=== PATIENT | male | born 1975 | race Caucasian/White ===

== ENCOUNTER 2025-09-15 19:25 | Emergency (ER) | payer OTHER, SELFPAY ==
[2025-09-15] MEDS ORDERED: Aspirin Chewable 81 MG TAB ONE (19:45)
[2025-09-15 19:49] LABS: Hematocrit 46.5 % (42.0-52.0); Hemoglobin 16.6 g/dL (14.0-18.0); MDiff Complete? YES; Mean Corpuscular Hemoglobin 31.6 pg (27.0-31.0); Mean Corpuscular Volume 88.5 fl (78.0-98.0); Platelet Adequacy Comment Appears Increased; Platelet Count 420 10x3/uL (130-400); Red Blood Cell (RBC) Count 5.26 mill/uL (4.70-6.10); White Blood Cell (WBC) Count 9.4 10x3/uL (4.8-10.8)
[2025-09-15 19:59] LABS: ALT (SGPT) 65 U/L (Less than 45); AST (SGOT) 42 U/L (11-34); Albumin 4.6 g/dL (3.1-4.5); Alkaline Phosphatase 78 U/L (40-110); Anion Gap 16 mmol/L (10-20); BUN (Urea Nitrogen) 13 mg/dL (8.4-25.7); Bilirubin, Total 0.4 mg/dL (0.3-1.2); Calc. Creatinine Clearance 0 mL/min (70-130); Calcium 9.1 mg/dL (7.8-10.44); Carbon Dioxide 22 mmol/L (22-29); Chloride 105 mmol/L (98-107); Globulin 3.1 g/dL (2.4-3.5); Glucose 140 mg/dL (70-105); Magnesium 2.1 mg/dL (1.6-2.6); Potassium 3.9 mmol/L (3.5-5.1); Sodium 139 mmol/L (136-145)
[2025-09-15 20:38] LABS: Troponin I Less than 0.010 ng/mL (< 0.028)
== END 2025-09-15 21:13 | disposition home or self-care (01) ==
LOC: BURERS 19:25
DX: R07.89 Other chest pain (principal); F17.220 Nicotine dependence, chewing tobacco, uncomplicated; E78.5 Hyperlipidemia, unspecified; Z79.899 Other long term (current) drug therapy; Z59.00 Homelessness unspecified; Z59.71 Insufficient health insurance coverage
CPT/HCPCS: 71045; 80053; 83735; 83880; 84484; 85025; 85379; 93005; 94760